=== PATIENT | male | born 1950 | race Two or more races ===

== ENCOUNTER 2017-09-17 09:26 | Day surgery (SDC) | payer OTHER ==
[~2017-09-17 09:26] MED LIST: ATENOLOL50 MG PO; COZAAR50 MG PO; LIPITOR20 MG PO; METFORMIN HCL500 MG PO; PERCOCET 5/3251 TAB PO; PROCTOZONE-HC30 GM TP; TAMS0.4C PO
[2017-09-17] MEDS ORDERED: ULTRACET PO (12:55)
== END 2017-09-17 15:00 | disposition home or self-care (01) ==
LOC: CIR.AMB 09:26
DX: C20 Malignant neoplasm of rectum (principal); K57.30 Diverticulosis of large intestine without perforation or abscess without bleeding; E78.00 Pure hypercholesterolemia, unspecified; E11.9 Type 2 diabetes mellitus without complications; E78.4 Other hyperlipidemia; N40.0 Benign prostatic hyperplasia without lower urinary tract symptoms

== ENCOUNTER 2018-10-26 05:40 | Day surgery (SDC) | payer OTHER ==
[~2018-10-26 05:40] MED LIST changes: +ULTRACET PO
== END 2018-10-26 14:15 | disposition home or self-care (01) ==
LOC: AMB-ENDOS 05:40
DX: K57.30 Diverticulosis of large intestine without perforation or abscess without bleeding (principal); K64.8 Other hemorrhoids

== ENCOUNTER 2022-06-10 06:00 | Day surgery (SDC) | payer OTHER ==
[~2022-06-10] VITALS: Ht 160 cm; Wt 79.4 kg
[2022-06-10] MEDS ORDERED: TRAM1TAB98 PO (14:18)
[2022-06-10] MEDS ORDERED: NEURONTIN300 MG PO (14:18)
== END 2022-06-10 15:00 | disposition home or self-care (01) ==
LOC: CIR.AMB 06:00
PROVIDERS: ATTEND Surgery
DX: K43.6 Other and unspecified ventral hernia with obstruction, without gangrene (principal); Z20.822 Contact with and (suspected) exposure to COVID-19; I10 Essential (primary) hypertension; E11.9 Type 2 diabetes mellitus without complications; Z79.84 Long term (current) use of oral hypoglycemic drugs
CPT/HCPCS: 49594; C1781